=== PATIENT | male | born 1990 | race Caucasian/White ===

== ENCOUNTER → 2021-11-10 | Day surgery (SDC) | payer OTHER ==
[~2021-11-10] VITALS: Ht 185.4 cm; Wt 117.9 kg
[~2021-11-10] MED LIST: ESCITALOPRAM OX20 MG PO; PRINIVIL20 MG PO; WELLBUTRIN SR150 MG PO
[2021-11-10 06:44] LABS: HCT 44.7 % (42.0-52.0); MCH 28.4 pg (25.0-31.0); MCHC 33.6 g/dL (32.0-36.0); MCV 84.7 fL (78.0-100.0); MPV 9.9 fL (6.0-9.5); RBC 5.28 M/uL (4.70-6.00); RDW 12.9 % (11.5-14.0); WBC 8.2 K/uL (4.0-10.5)
[2021-11-10 07:07] LABS: BUN/CREAT RATIO (CALC) 17.3 RATIO; CREATININE 0.81 mg/dL (0.67-1.17)
== END | disposition home or self-care (01) ==
LOC: FAS 05:49
PROVIDERS: Legal Medicine
DX: S83.241A Other tear of medial meniscus, current injury, right knee, initial encounter (principal); X58.XXXA Exposure to other specified factors, initial encounter; I10 Essential (primary) hypertension
CPT/HCPCS: 36415; 80048; 93005; J0690; J1100; J1170; J1885; J2250; J2274; J2405; J2704; J3010; J7120